=== PATIENT | female | born 1985 | race Caucasian/White ===

== ENCOUNTER 2017-01-07 12:00 | Inpatient (IN) | payer MEDICAID ==
[~2017-01-07] VITALS: Ht 152.4 cm; Wt 69.5 kg
[~2017-01-07 12:00] MED LIST: FERR240T9 PO; IBUP-1542 PO; PREN1TAB49; [UNRECOGNIZED DRUG - REMARK]
[2017-01-07] MEDS ORDERED: MINERAL OIL LIGHT 10 ML VIAL TOP ONE (12:30)
[2017-01-07] MEDS ORDERED: OXYTOCIN 30 UNITS/LR 500 ML IV SCH ×4 (12:30→14:00)
[2017-01-07] MEDS ORDERED: IBUPROFEN 600 MG TAB PO PRN (12:30)
[2017-01-07] MEDS ORDERED: BUTORPHANOL 2 MG INJ IV PRN ×2 (12:30→14:00)
[2017-01-07] MEDS ORDERED: METHYLERGONOVINE 0.2 MG INJ IM PRN ×2 (12:30→14:00)
[2017-01-07] MEDS ORDERED: CARBOPROST 250 MCG INJ IM PRN ×2 (12:30→14:00)
[2017-01-07] MEDS ORDERED: LIDOCAINE 1% (MPF) 30 ML INJ INJ PRN ×2 (12:30→14:00)
[2017-01-07] MEDS ORDERED: MISOPROSTOL 200 MCG TAB PR PRN ×2 (12:30→14:00)
[2017-01-07] MEDS ORDERED: OXYTOCIN 30 UNITS/LR 500 ML IV PRN ×2 (12:30→14:00)
[2017-01-07 12:37] VITALS: Ht 152.4 cm; Wt 69.5 kg
--- NOTE | 2017-01-07 12:56 | RADRPT ---
PROCEDURE: Obstetrical ultrasound CLINICAL INDICATION: Post dates, size and dates TECHNIQUE: Multiple sonographic images of the pelvis were obtained. The images were reviewed on a PACS workstation. COMPARISON: None FINDINGS: The cervix is not well visualized. There is a single viable intrauterine gestation. Cardiac activity is present with 157 beats per minute. There is a vertex presentation. The placenta is posterior. There is no evidence for an abruption or placenta previa. There is a subjectively normal amount of amniotic fluid. Measurements were made in order to determine age. The results are as follows (cm): BPD =8.78 HC =33.06 AC =34.69 FL =6.95 Estimated gestational age by ultrasound of approximately 36 weeks, 6 days. The estimated date of delivery by ultrasound is 01/29/2017. Estimated gestational age by LMP of approximately 40 weeks, 1 day. The estimated date of delivery by LMP is 01/06/2017. EFW = 3211 grams (17th percentile) IMPRESSION: Single viable intrauterine gestation of approximately 36 weeks, 6 days . The estimated date of delivery is 01/29/2017 . Dating by ultrasound is within 23 days of dating by LMP. Cephalic presentation. Estimated weight is 3211 g. RPTAT: EE Physician Gene Date Time Electronically viewed and signed by Physician Gene on 01/07/2017 12:56 /
[2017-01-07] MEDS ORDERED: LACTATED RINGER'S 1,000 ML IV PRN ×2 (13:00→14:00)
[2017-01-07] MEDS: LACTATED RINGER'S 1,000 ML IV SCH ×5 (13:37→21:37)
--- NOTE | 2017-01-07 14:06 | HP ---
Date/Time of Note Date/Time of Note DATE: 01/07/17 TIME: 14:02 OB - History Hx of Present Free Text/Dictation Admitted for induction of labor at 40 weeks and 1 day Last Menstrual Period: Apr 01, 2016 Estimated Due Date: Jan 06, 2017 : 4 Para: 3 Care: Good Care Ultrasounds: Normal mid trimester US Obstetrical Complications: None Medical Complications: None Past Family/Social History * Past Medical, Surgical, Family and Obstetric Histories reviewed from chart. Blood Type: A+ Rubella: immune RPR/VDRL: Negative GBS Status: Negative HBsAG: Negative OB Admission Exam Physical Exam HEENT: WNL Heart: Rhythm Normal Lungs: Clear, Equal Abdomen: WNL Extremities: Normal Reflexes: Normal Cervical Dilatation: 1cm Effacement: 0% Station: -3 Membranes: Intact Heart Rate: 140's Accelerations: Accelerations Present Decelerations: No Decelerations Varibility: Marked Contractions on Admission: None OB Assessment/Plan Reason for admission: induction of labor Other Assessment: Term gestation Postterm Other plan: Will induce labor using Cervidil LEANDRO WHITLEY MD Jan 07, 2017 14:06
[2017-01-07] MEDS ORDERED: DINOPROSTONE 10 MG VAG SUPP VAG ONE (14:30)
[2017-01-08] MEDS: LACTATED RINGER'S 1,000 ML IV SCH ×5 (01:13→09:45)
[2017-01-08] MEDS ORDERED: MINERAL OIL LIGHT 10 ML VIAL TOP PRN (10:30)
[2017-01-08] MEDS ORDERED: OXYTOCIN 30 UNITS/LR 500 ML IV SCH (11:00)
--- NOTE | 2017-01-08 14:23 | LDN ---
Date/Time of Note Date/Time of Note DATE: 01/08/17 TIME: 14:20 Delivery Summary Procedure was done by Dr. Aguero Normal spontaneous vaginal delivery of a viable over intact perineum Weeks of Gestation 40+ Placenta Delivered: Spontaneously, Intact & Complete Meconium: none Episiotomy: No Perineal laceration: 0 Anesthesia type: None Estimated blood loss: 300 Sponge & Needle done & correct: Yes All needle counts correct: Yes Any foreign bodies felt in the: No Problems: Delivery Information Sex Sex: male Apgars 1 Minute: 9 5 Minute: 9 Suctioning Nose & mouth suctioned at latia: Yes Delee suction performed: No Umbilical Cord Umbilical cord with: 3 Vessels Cord presentations: no nuchal cord Cord Blood was obtained: No Mother & Baby Disposition Disposition Mom & Baby to Maternity; Good: Yes (Mother and baby were recovering in good condition) Mom transferred to: Other (Maternity) Baby to NICU: No LEANDRO WHITLEY MD Jan 08, 2017 14:23
[2017-01-08 15:15] VITALS: BP 113/72; PULSE 66; RESP 66
[2017-01-08] MEDS: LACTATED RINGER'S 1,000 ML IV* SCH (16:05)
[2017-01-08 16:30] VITALS: BP 115/71; PULSE 72; RESP 18
[2017-01-08] MEDS ORDERED: HYDROCODONE/APAP (5/325) TAB PO PRN ×2 (16:30)
[2017-01-08] MEDS ORDERED: ZOLPIDEM 5 MG TAB PO PRN (16:30)
[2017-01-08] MEDS ORDERED: LANOLIN 7 GM TUBE TOP PRN (16:30)
[2017-01-08] MEDS ORDERED: CARBOPROST 250 MCG INJ IM PRN (16:30)
[2017-01-08] MEDS ORDERED: WITCH HAZEL/GLYCERIN PAD PR PRN (16:30)
[2017-01-08] MEDS ORDERED: DIBUCAINE 1% 30 GM OINT PR PRN (16:30)
[2017-01-08] MEDS ORDERED: OXYTOCIN 30 UNITS/LR 500 ML IV PRN (16:30)
[2017-01-08] MEDS ORDERED: METHYLERGONOVINE 0.2 MG INJ IM PRN (16:30)
[2017-01-08] MEDS ORDERED: MISOPROSTOL 200 MCG TAB PR PRN (16:30)
[2017-01-08] MEDS ORDERED: BENZOCAINE 20% 56 ML SPRAY TOP PRN (16:30)
[2017-01-08] MEDS: IBUPROFEN 600 MG TAB PO SCH (17:37)
[2017-01-08 20:45] VITALS: BP 111/68; PULSE 79; RESP 17
[2017-01-08] MEDS: SENNA/DOCUSATE NA (8.6MG/50MG) TAB PO SCH (21:04)
[2017-01-08] MEDS: MAGNESIUM HYDROXIDE 30ML CUP PO SCH (21:04)
[2017-01-09] VITALS: BP 105/62; PULSE 70; RESP 16
[2017-01-09] MEDS: LACTATED RINGER'S 1,000 ML IV* SCH ×3 (00:05→16:05)
[2017-01-09] MEDS: IBUPROFEN 600 MG TAB PO SCH ×5 (00:19→23:25)
[2017-01-09 04:45] VITALS: BP 100/63; PULSE 80; RESP 17
[2017-01-09] MEDS: MAGNESIUM HYDROXIDE 30ML CUP PO SCH (11:11)
[2017-01-09] MEDS: SENNA/DOCUSATE NA (8.6MG/50MG) TAB PO SCH ×2 (11:11→21:00)
--- NOTE | 2017-01-09 16:33 | DS ---
Date/Time of Note Date/Time of Note Home today or next day DATE: 01/09/17 TIME: 16:32 Obstetrical Discharge Record Final Diagnosis Final Diagnosis: Term delivered Other Final Diagnosis Status post vaginal delivery Vaginal Delivery Obstetrical Delivery: Spontaneous Complications Augmentation: Yes Induction: Yes Condition on Discharge Physical Assessment Last Vitals: See nurse's notes Voiding: Yes Bowel Movement: Yes Breast: Soft, non-tender, Filling Fundus: Firm Abdomen and Incision: Abdomen is soft bowel sounds present Fundus at umbilicus Episiotomy: Not applicable Calf Tenderness: No Patient Condition: Good LEANDRO WHITLEY MD Jan 09, 2017 16:33
[2017-01-09] MEDS ORDERED: IBUP-1542 PO (16:34)
--- NOTE | 2017-01-09 16:34 | PD.PPDC ---
P[employer]TE[employer] Discharge Instruction Provider Information Physician Information 31-year-old female had vaginal delivery Diagnosis Final Diagnosis: Status post vaginal delivery Condition Patient Condition: Good Diet Diet: Resume Regular Diet Activity/Restrictions Activity: Normal Activity May Shower Restrictions: Nothing in the Vagina Return to Work or School: Feb 21, 2017 Follow-up Follow-up with Physician: 4, Week/Weeks (In clinic) Return to clinic for OB Instructions: Breast Tenderness Depression Comment: Pelvic rest for 6 weeks LEANDRO WHITLEY MD Jan 09, 2017 16:34
[2017-01-09 16:50] VITALS: BP 103/66; PULSE 76; RESP 16
[2017-01-09 20:00] VITALS: BP 112/62; PULSE 74; RESP 20
[2017-01-10] MEDS: LACTATED RINGER'S 1,000 ML IV* SCH (00:05)
[2017-01-10 03:39] VITALS: BP 109/62; RESP 20
[2017-01-10] MEDS: IBUPROFEN 600 MG TAB PO SCH ×2 (05:13→11:45)
[2017-01-10 08:49] VITALS: BP 109/73; PULSE 68; RESP 16
[2017-01-10] MEDS: SENNA/DOCUSATE NA (8.6MG/50MG) TAB PO SCH (08:57)
[2017-01-10] MEDS: MAGNESIUM HYDROXIDE 30ML CUP PO SCH (08:57)
[2017-01-10] MEDS ORDERED: DIPHTH/TET/ACEL PERTUSS (ADULT) 0.5 ML VIAL IM* ONE (09:00)
[2017-01-10] MEDS ORDERED: MEASLES,MUMPS,RUBELLA VACCINE INJ SC* ONE (09:00)
[2017-01-10] MEDS ORDERED: VARICELLA VACCINE LIVE/PF 1,350 UNIT/0.5 ML ML SC* ONE (09:00)
[2017-01-10 15:40] VITALS: BP 116/77; PULSE 72; RESP 14
== END 2017-01-10 15:50 | disposition home or self-care (01) | DRG 775 ==
LOC: L-D 12:19 → PP1 01-08 15:22
PROVIDERS: ADMIT Obstetrics & Gynecology; ATTEND Obstetrics & Gynecology
PROC: 3E0P7VZ Introduction of Hormone into Female Reproductive, Via Natural or Artificial Opening (ICD-10-PCS; 2017-01-07)
PROC: 10E0XZZ Delivery of Products of Conception, External Approach (ICD-10-PCS; principal; 2017-01-07 12:00)
DX: O48.0 Post-term pregnancy (principal); Z3A.40 40 weeks gestation of pregnancy
CPT/HCPCS: 76815; 85025; 85610; 85730; 86592; 86900; 86901; 87340; 90715; 90716; J2590; J7120